=== PATIENT | male | born 1945 | race Caucasian/White ===

== ENCOUNTER → 2018-10-12 | Outpatient (CLI) | payer MEDICARE ==
[~2018-10-12] MED LIST: ASPI325 PO; ASPI81CH PO; ATOR40TA PO; CEPH500 PO; CLOP75 PO; EFFIENT10 MG PO; GABA600 PO; HYDACE5 PO; HYDCHL25 PO; METO50ER PO; METOPROLOL; Norco 10-325 T1 EACH PO; OMEP20ER PO; PARO25 PO; TRAM50 PO; TRIHYD253A PO
== END | disposition home or self-care (01) ==
LOC: LAB 18:49 → LAB SHORT 18:49
DX: L08.9 Local infection of the skin and subcutaneous tissue, unspecified (principal)
CPT/HCPCS: 87070; 87205

== ENCOUNTER → 2020-02-09 | Outpatient (CLI) | payer MEDICARE | END | disposition home or self-care (01) | LOC: PLD 07:57 → LAB SHORT 07:57 | DX: L57.0 Actinic keratosis (principal) | CPT/HCPCS: 88305 ==

== ENCOUNTER → 2020-10-25 | Outpatient (CLI) | payer MEDICARE | END | disposition home or self-care (01) | LOC: LAB SHORT 11:00 | DX: D48.5 Neoplasm of uncertain behavior of skin (principal) | CPT/HCPCS: 88305 ==

== ENCOUNTER 2021-02-13 08:40 | Day surgery (SDC) | payer MEDICARE ==
[~2021-02-13] VITALS: Ht 170.2 cm; Wt 72.0 kg
[~2021-02-13 08:40] MED LIST changes: +BUPRENO-NALOX1 EACH SL; +NITRO-DUR1 EAC1 TOP; +VITAMIN D5000 UNIT PO
--- NOTE | 2021-02-13 10:50 | NUR ---
PT MEDICATED WITH 10MG HYDRALAZINE FOR ELEVATED BP PER VERBAL ORDER FROM DR. GARCIA. WILL CONTINUE TO MONITOR. PTS RRAD SITE WITH NO BLEEDING, OOZING OR HEMATOMA NOTED.
[2021-02-13] MEDS ORDERED: Isosorbide Mono30 MG PO (11:21)
--- NOTE | 2021-02-13 14:30 | NUR ---
DISCHARGE PT AMBULATED TO RESTROOM AND DRESSES WITH WIFES ASSISTENCE. PT WITH A LOOSE BM. PT APPEARS TO BE CONFUSED BUT PER IS BASELINE FOR HIM. TR BAND WAS REMOVED, SITE CLEANED AND CLOTH DOT DRESSING APPLIED TO SITE. RRAD SITE WITHNO BLEEDING OOZING OR HEMATOMA NOTED. WHITE BOARD PLACED BACK ON R ARM AND ARM PLACED IN A SLING. IV DCD WITH CATH INTACT. PT GIVE HAND WRITTEN COPY OF NEW RX. PT AND BOTH STATE THEIR UNDERSTANDING OF SITE CARE AND DC INSTRUCTIONS AND BOTH DENY ANY QUESTIONS OR CONCERNS. VSS. PT TAKEN TO EXIT VIA WHEELCHAIR WHERE DAUGHTER WAS WAITING WITH CAR.
== END 2021-02-13 14:30 | disposition home or self-care (01) ==
LOC: MHTC 08:40
DX: R07.89 Other chest pain (principal); R94.39 Abnormal result of other cardiovascular function study; I12.9 Hypertensive chronic kidney disease with stage 1 through stage 4 chronic kidney disease, or unspecified chronic kidney disease; N18.9 Chronic kidney disease, unspecified; I25.10 Atherosclerotic heart disease of native coronary artery without angina pectoris; E78.5 Hyperlipidemia, unspecified; Z79.02 Long term (current) use of antithrombotics/antiplatelets; Z95.5 Presence of coronary angioplasty implant and graft; Z79.82 Long term (current) use of aspirin; Z79.899 Other long term (current) drug therapy; Z88.5 Allergy status to narcotic agent
CPT/HCPCS: 76937; 93458; 99152; C1769; C1894; J0360; J1644; J2250; J2370; J3010; J7030; J7050; Q9967

== ENCOUNTER → 2021-03-07 | Outpatient (CLI) | payer MEDICARE ==
[~2021-03-07] MED LIST changes: +Isosorbide Mono30 MG PO
== END ==
LOC: LAB SHORT 17:35
DX: R31.9 Hematuria, unspecified (principal)
CPT/HCPCS: 87086

== ENCOUNTER 2021-03-20 22:47 | Inpatient (IN) | payer MEDICARE ==
[~2021-03-20] VITALS: Ht 172.7 cm; Wt 71.8 kg
[~2021-03-20 22:47] MED LIST changes: +DYAZIDE 37.5-21 EACH PO; -TRIHYD253A PO
[2021-03-20 23:40] LABS: BASOPHILS ABSOLUTE AUTO 0.03 K/mm3 (0.00-0.23); BASOPHILS PERCENT AUTO 0 % (0-2); EOSINOPHILS ABSOLUTE AUTO 0.23 K/mm3 (0.00-0.68); EOSINOPHILS PERCENT AUTO 3 % (0-6); Hematocrit 29.3 % (37.0-53.0); Hemoglobin 9.6 g/dL (13.5-17.5); IMMATURE GRAN ABSOLUTE AUTO 0.16 K/mm3 (0.00-0.10); IMMATURE GRAN PERCENT AUTO 2 % (0-1); LYMPHOCYTES ABSOLUTE AUTO 1.71 K/mm3 (0.84-5.20); LYMPHOCYTES PERCENT AUTO 18 % (21-46); MONOCYTES ABSOLUTE AUTO 1.42 K/mm3 (0.16-1.47); MONOCYTES PERCENT AUTO 15 % (4-13); Mean Corpuscular HGB 33.3 pg (26.0-34.0); Mean Corpuscular HGB Conc 32.8 g/dL (31.5-36.5); Mean Corpuscular Volume 102 fL (80-100); Mean Platelet Volume 9.2 fL (9.1-12.4); NEUTROPHILS ABSOLUTE AUTO 5.74 K/mm3 (1.96-9.15); NEUTROPHILS PERCENT AUTO 62 % (41-73); Platelet Count 388 K/mm3 (150-400); RDW Coefficient Variation 13.3 % (11.7-14.2); RDW Standard Deviation 50.1 fL (35.1-46.3); Red Blood Cell Count 2.88 M/mm3 (4.30-5.90); White Blood Cell Count 9.29 K/mm3 (4.00-11.30)
[2021-03-20 23:54] LABS: Anion Gap 12 mmol/L (6-16); Blood Urea Nitrogen 53 mg/dL (8-24); Bun/Creatinine Ratio 23.9 (12.0-20.0); CO2, Blood 24 mmol/L (21-32); Calcium, Blood 12.3 mg/dL (8.5-10.1); Chloride, Blood 95 mmol/L (98-108); Creatinine, Blood 2.22 mg/dL (0.60-1.20); Glomerular Filtration Rate 29 (60-); Glucose, Blood 101 mg/dL (70-99); Potassium, Blood 4.9 mmol/L (3.5-5.5); Sodium, Blood 131 mmol/L (136-145); Troponin I <0.015 ng/mL (0.000-0.040)
[2021-03-21 00:53] LABS: Source, Urine Clean Catch
[2021-03-21 00:56] LABS: Bilirubin, Urine Neg (Neg); Blood, Urine 2+ (Neg); Glucose Qualitative, Urine Neg (Neg); Ketones, Urine Neg (Neg); Leukocyte Esterase, Urine Neg (Neg); Nitrite, Urine Neg (Neg); Protein, Urine Neg (Neg); Specific Gravity, Urine 1.015 (1.003-1.022); Urobilinogen, Urine NORM (Normal); pH, Urine 6.5 (5.0-8.0)
[2021-03-21 01:14] LABS: Appearance, Urine Clear (Clear); Color, Urine Yellow (P-Yellow)
[2021-03-21 01:15] LABS: Amorphous Light (0-Heavy); Bacteria Rare /hpf; Squamous Epithelial Cells Rare /hpf (Few); White Blood Cells, Urine Rare /hpf (0-5)
[2021-03-21 03:25] LABS: Influenza A, PCR NEGATIVE (NEGATIVE); Influenza B, PCR NEGATIVE (NEGATIVE); Resp Syncytial Virus, PCR NEGATIVE (NEGATIVE); SARS-Cov-2 (COVID-19) PCR, MMC NEGATIVE (NEGATIVE)
[2021-03-21 05:16] LABS: BASOPHILS ABSOLUTE AUTO 0.05 K/mm3 (0.00-0.23); BASOPHILS PERCENT AUTO 0 % (0-2); EOSINOPHILS ABSOLUTE AUTO 0.14 K/mm3 (0.00-0.68); EOSINOPHILS PERCENT AUTO 1 % (0-6); Hematocrit 29.3 % (37.0-53.0); Hemoglobin 9.7 g/dL (13.5-17.5); IMMATURE GRAN ABSOLUTE AUTO 0.12 K/mm3 (0.00-0.10); IMMATURE GRAN PERCENT AUTO 1 % (0-1); LYMPHOCYTES ABSOLUTE AUTO 1.69 K/mm3 (0.84-5.20); LYMPHOCYTES PERCENT AUTO 15 % (21-46); MONOCYTES ABSOLUTE AUTO 1.29 K/mm3 (0.16-1.47); MONOCYTES PERCENT AUTO 11 % (4-13); Mean Corpuscular HGB 33.3 pg (26.0-34.0); Mean Corpuscular HGB Conc 33.1 g/dL (31.5-36.5); Mean Corpuscular Volume 101 fL (80-100); Mean Platelet Volume 9.1 fL (9.1-12.4); NEUTROPHILS ABSOLUTE AUTO 8.23 K/mm3 (1.96-9.15); NEUTROPHILS PERCENT AUTO 72 % (41-73); Platelet Count 386 K/mm3 (150-400); RDW Coefficient Variation 13.4 % (11.7-14.2); RDW Standard Deviation 49.7 fL (35.1-46.3); Red Blood Cell Count 2.91 M/mm3 (4.30-5.90); White Blood Cell Count 11.52 K/mm3 (4.00-11.30)
[2021-03-21 05:32] LABS: Albumin, Blood 2.4 g/dL (3.4-5.0)
[2021-03-21 05:37] LABS: Alanine Aminotransfer (ALT/SGP 21 U/L (12-78); Albumin, Blood 2.3 g/dL (3.4-5.0); Albumin/Globulin Ratio 0.2 (0.8-1.8); Alk Phos 45 U/L (50-136); Anion Gap 8 mmol/L (6-16); Aspartate Aminotrans (AST/SGOT 31 U/L (12-37); Bilirubin, Total 0.4 mg/dL (0.1-1.0); Blood Urea Nitrogen 52 mg/dL (8-24); CO2, Blood 25 mmol/L (21-32); Calcium, Blood 12.4 mg/dL (8.5-10.1); Chloride, Blood 100 mmol/L (98-108); Creatinine, Blood 2.08 mg/dL (0.60-1.20); Globulin, Blood 9.3 g/dL (2.2-4.0); Glomerular Filtration Rate 31 (60-); Glucose, Blood 109 mg/dL (70-99); Potassium, Blood 5.4 mmol/L (3.5-5.5); Sodium, Blood 133 mmol/L (136-145); Total Protein, Blood 11.6 g/dL (6.4-8.2); Troponin I <0.015 ng/mL (0.000-0.040)
[2021-03-21] MEDS ORDERED: HYDR1TAB94 PO (09:41)
[2021-03-21] MEDS ORDERED: Prozac20 MG PO (09:41)
[2021-03-21] MEDS ORDERED: NEURONTIN300 MG PO (09:42)
[2021-03-21] MEDS ORDERED: METOPROLOL SUCC25 MG PO (09:43)
--- NOTE | 2021-03-21 10:35 | NUR ---
75 year old male admitted for Acute Renal Failure, Hypercalcemia, and Metastatic Disease. Pt's medical history and comorbidities include: Diastolic CHF, CAD, HTN, CKD3, Chronic Pain, and possible Metastatic bone cancer. Spoke with ED Pin Chaser Marycarmen and discussed case. Pt resting on gurney upon arrival. Pt is pleasantly confused and struggles with verbal response. Pt does report pain in his back but anable to verbalize intensity on pain scale 1-10. PAINAD score is 3/10. No dyspnea noted. Pt does appear mildly anxious. Called and spoke with Pt's spouse Albina. Provided update and engaged in therapeutic discussion regarding goals of care. Albina report seeing a significant decline with Pt over the last 3 months. Pt's confusion has increase and his level of function has decrease. Pt needs help with transfers with Albina reporting Pt does not ambulate. Pt needs assistance with bathing, dressing, eating, drinking and has a poor appetite. Pt often can use a urinal with assistance but does experience intermittent incontinence of urine. Albina reports Pt's care becomes more difficult due to his pain. Listened as Albina reports Pt would not want to pursue cancer treatment at this stage of his life. Albina also reports being a 3 year breast cancer survivor. She reports 2 daughters that are able to provide support as needed. She also reports her son is assisting with end of life care for his father in law and states father in law's prognosis is a week. Discussed hospice as an option and educated on hospice philosophy with V/U made by Albina. Albina reports leaning towards the option for hospice. Discussed hospice agencies to choose from with Albina reporting likely who ever is the available the soonest but will discuss further with family. Albina requests for Dr Singh to call for update on plan of care as well. Albina expresses appreciatin and reports no other concerns at this time. Spoke with Dr Singh, relayed spouse's request, and discussed case. PPS 40% KPS 40% ADLs 6/6 FAST 7C Pt may benefit from hospice services. Palliative Care will remain available.
--- NOTE | 2021-03-21 13:31 | NUR ---
Received referral from [facility] Sand Cutter (Alona Barnhart) on 03/21/2021. Patient is to discharge with orders for hospice and family elected [facility]. Gathered supporting documentation for referral (face sheet, labs, imaging, progress notes, palliative care note, and H&P) and sent to [facility] bundle helper (Larry Everett) for review of hospice appropriateness and ability to accept patient onto service post discharge. Will await further information from hospice bundle helper regarding the above. Neida Grimm Referral Liaison
--- NOTE | 2021-03-21 16:05 | NUR ---
Received notification from [facility] business analyst consultant (Larry Everett) that patient is hospice appropriate and able to be accepted onto service post discharge. Will attempt to meet with patient and/or family tomorrow to further discuss the above. Will continue to monitor and follow for discharge. Neida Grimm Referral Liaison
[2021-03-21] MEDS ORDERED: NITR.4SL SL (16:23)
--- NOTE | 2021-03-21 17:20 | NUR ---
SHIFT SUMMARY PT ADMITTED TO UNIT THIS SHIFT AT 1405 FROM ED. RECEIVED REPORT FROM EDIE TOVAR VIA PHONE. PT IS AAO TO SELF, FAMILY AND SITUATION, SOME CONFUSION NOTED, PT IS A VERY POOR HISTORIAN, FORGETFUL. REDIRECTABLE BY STAFF. PT's AT BEDSIDE T/O ADMISSION PROCESS. NO C/O PAIN OR ANY DISCOMFORT NOTED. PT DENIES CP, SOB, OR N&V. PT REMAINS ON 2LPM O2 VIA NC, SATTING 94%. PT IS INCONTINENT OF B&B, ATTENDS IN PLACE. PT REQUIRES 2P MAX ASSIST WITH BED MOBILITY AND TRANSFERS, PT SEEN BY THERAPY THIS SHIFT. PT CALM AND COMFORTABLE IN BED AT THIS TIME, BED AT LOWEST POSITION, W/ ALARM ON FOR SAFETY. CALL LIGHT WITHIN REACH.
--- NOTE | 2021-03-21 20:30 | NUR ---
ASSUMED CARE. AOX2, DOES NOT KNOW WHERE HE IS OR WHY HE IS HERE. DOES NOT KNOW DATE OR TIME. SLOW TO RESPOND, EASILY REDIRECTABLE. FATIQUED, DECONDITIONED, WEAKNESS, PALE SKIN. LS DIMINISHED T/O. CONTINUES TO PULL OFF O2, O2 2L NC SATS MID 90'S. NO COUGH OR CONGESTION. TELE-SINUS IN 80'S. NO CP OR DISCOMFORT. VS WNL. STATES CHRONIC BACK PAIN BUT DENIES NEED FOR PAIN MEDS. USED URINAL. IVF INFUSING, WAKES FOR SHORT PERIODS ONLY. CALL LIGHT IN REACH, BED ALARM IS ON.
--- NOTE | 2021-03-22 11:56 | NUR ---
Pt resting in bed upon arrival. Pt appears more alert from yesterday. Pt A&OX2/3. Pt reports pain in his back but unable to verbalize intensity. PAINAD score 3/10. Pt agreeable with plan to D/C home tomorrow with hospice. Spoke with Dr Singh and Primary RN Wilber. Discussed case and plan. Palliative Care will remain available.
--- NOTE | 2021-03-22 12:37 | NUR ---
Met with patient's (Albina Padgett) and daughter (Yadira Huitron) to further discuss hospice services and the election of [facility]. Patient's family is agreeable to the above. Discussed what hospice is (reserved for patients with a terminal diagnosis with life expectancy of 6 months or less). Discussed that some patients exceed the 6 months expectancy and stay on service and some patients stabilize and come off hospice. Patient's family verbalized understanding of the above. Discussed with patient's family that hospice service focuses on quality of life at the end of life and that rather than measuring the quantity of days, the quality of those days would be measured. Discussed with patient's family that with hospice service the goal would be to keep the patient out of the hospital and comfortable by managing symptoms at home. Patient's family verbalized understanding. Discussed the people, prescriptions, and equipment of hospice. People- discussed the team of people and their roles (RNs, chaplains, therapists, LCSWs, CNAs, and volunteers) that would be there to support not only the patient but also their family during this time. Explained to the patient's family that the team would be custom tailored to the patient and family's needs during this time. Patient's family verbalized understanding. Prescriptions- discussed that we [facility] a [facility] to provide medications related to the hospice diagnosis and for symptom management. All other medications that patient chose to stay on would be patient's and/or patient's family's responsibility to provide and pay for. Patient's family verbalized understanding. Discussed that upon discharge patient would be given three prescriptions, one for morphine 20mg/mL #30mL (0.25mL - 1mL PO/SL Q1H PRN SOB/pain), one for lorazepam 0.5mg #20 (1 - 2 PO Q4H PRN anxiety), and one for hyoscyamine 0.125mg SL tablets #30 (1 SL Q2H PRN secretions). Explained to the patient's family that as patient would not yet be admitted to hospice service at the time of discharge those prescriptions would be patient/patient's family's responsibility to fill and pay for. Patient's family verbalized understanding. Equipment- discussed with patient's family that we contract through [employer] to provide DME such as hospital beds, commodes, etc. to patient. Wrote order for DME (hospital bed, full rails, over bed table, pump & pad, oxygen & e-tank at 1-5 LPM, walker, and wheelchair) and sent to [facility] for delivery on Friday- 03/23/2021. Discussed with patient's family that [facility] [employer] [place] does not supply the sheets for the beds. Discussed that one of two options can be used- either a twin extra-long fitted sheet OR a cornelius sized flat sheet wrapped around the pump & pad. Patient's family verbalized understanding. Discussed with patient's family that once patient was admitted onto hospice services the goal would be for them to contact us ([facility]) over contacting 911 or presenting back to the hospital/ED. Patient's family verbalized understanding. Discussed the tentative discharge plans for Friday- 03/23/2021 at 1030 with preferred mode of transportation- medical transport via gurney. Explained to patient's family that I would arrange transportation for patient. Patient's family verbalized understanding. Offered a chance for patient's family to ask questions regarding the above of which there were none. Will continue to monitor and follow as appropriate for discharge. Neida rGimm Referral Liaison
--- NOTE | 2021-03-22 18:14 | NUR ---
PT IS A/OX3 TODAY TO SELF PLACE AND FAMILY. THE PT IS PLEASANT AND COOPERATIVE. THE PT AT TIMES HAS SOME CONFUSED SPEECH/ NONSENSICAL SPEECH. THE PT REPORTED PAIN WITH POSITION CHANGES AND WAS MEDICATED FOR PAIN X2 TODAY. THE PT HAD A LITTLE N/V AT LUNCH TIME AND DECLINED HIS LUNCH. THIS EVENING THE PT WAS MEDICATED FOR NAUSEA PRIOR TO DINNER, HOWEVER, CONTINUES TO HAVE A POOR APPETITE. PT APPEARS TO BE BREATHING EASILY ON O2 @ 2L/MIN AT REST. CALL LIGHT IN REACH. EXPECT DISCHARGE HOME WITH HOSPICE TOMORROW AT 10:30 AM
--- NOTE | 2021-03-23 06:15 | NUR ---
SHIFT SUMMARY PT A/O X2 AND SEEMS TO BECOME MORE CONFUSED AT NIGHT. PT OFTEN CALLED OUT DUE TO THINKING HE WAS AT HOME. PT EASILY REDIRECTABLE. PT INCONT/CONT THIS SHIFT AND AT TIMES IS ABLE TO USE THE URINAL IND. WILL DC HOME TODAY ON HOSPICE. BREATHING EASILY ON 2 LITERS O2. VSS. WILL REPORT TO DAY SHIFT RN.
[2021-03-23] MEDS ORDERED: MORP20L PO (10:03)
--- NOTE | 2021-03-23 10:34 | NUR ---
Patient is to discharge at 1030 with orders for hospice. Contacted [facility] ([place]) to arrange gurney transport to patient's residence. Pick-up at 1030 will be provided by the above. Faxed copy of face sheet, PCS form, and DNR status to [facility] Business office per protocol. Placed copies of the above in nurse server cashier for transportation engineer. Notified [employer] Assistant (Alona Barnhart), ACC (Jenelle Mosher), Charge RNs (Lilli Farah and Olga Salas), and bedside RN (Krysten Adams) of the above. All are agreeable to the above. Requested discharge orders from hospitalist (Dr. Singh). Provided hard copy prescriptions for morphine and lorazepam to patient's (Albina Padgett) on - 03/22/2021. Faxed copies of discharge order and med list to [facility] rod piler. No further interventions required. Neida Grimm Referral Liaison
--- NOTE | 2021-03-23 11:18 | NUR ---
DISCHARGE NOTE: PT DISCHARGED HOME TODAY VIA GURNEY WITH [facility]. IN ROOM AND DISCUSSED DISCHARGE INSTRUCTIONS AND MEDICATIONS WITH HER. PT BELONGINGS PACKED UP AND SENT WITH . PT MEDICATED FOR PAIN FOR THE RIDE HOME PER WIFES REQUEST. PT REPORTED PAIN WITH MOVEMENT ONLY. PT TOLERATED WELL.
--- NOTE | 2021-03-23 14:56 | NUR ---
Per Dr. Rivas discharge appropriate for today. 03/23/21. Patient's family does not oppose to discharge. Patient discharged to home with Hospice. Neida Cano's Hospice Patrol Guard coordinated hospice needs to include DME and transportation. [facility]'s transition of care with contact family point of contact to schedule hospital discharge follow up with PCP as needed. No barriers to discharge at this time.
[2021-03-23 15:07] LABS: A/G RATIO 0.5 (0.7-1.7); ALPHA-1-GLOBULIN 0.4 g/dL (0.0-0.4); ALPHA-2-GLOBULIN 1.2 g/dL (0.4-1.0); GLOBULIN, TOTAL 7.6 g/dL (2.2-3.9); M-SPIKE 4.4 g/dL (Not Observed); PROTEIN, TOTAL, SERUM 11.6 g/dL (6.0-8.5)
[2021-03-27 14:10] LABS: M-SPIKE, % Comment: % (Not Observed); PROTEIN,TOTAL,URINE 9.2 mg/dL (Not Estab.)
== END 2021-03-23 10:47 | disposition hospice, home (50) | DRG 682 ==
LOC: ER 22:47 → ERHOLD 22:48 → MEDS 03-21 14:00
PROVIDERS: Emergency Medicine; Student in an Organized Health Care Education/Training Program; ADMIT Internal Medicine
DX: N17.9 Acute kidney failure, unspecified (principal); G93.41 Metabolic encephalopathy; C90.00 Multiple myeloma not having achieved remission; I13.0 Hypertensive heart and chronic kidney disease with heart failure and stage 1 through stage 4 chronic kidney disease, or unspecified chronic kidney disease; I50.32 Chronic diastolic (congestive) heart failure; C79.51 Secondary malignant neoplasm of bone; E83.52 Hypercalcemia; Z66 Do not resuscitate; R31.29 Other microscopic hematuria; Z20.822 Contact with and (suspected) exposure to COVID-19; N18.30 Chronic kidney disease, stage 3 unspecified; F03.90 Unspecified dementia, unspecified severity, without behavioral disturbance, psychotic disturbance, mood disturbance, and anxiety; I25.119 Atherosclerotic heart disease of native coronary artery with unspecified angina pectoris; G89.29 Other chronic pain; F32.9 Major depressive disorder, single episode, unspecified; D53.9 Nutritional anemia, unspecified; Z88.5 Allergy status to narcotic agent; Z95.5 Presence of coronary angioplasty implant and graft; Z90.89 Acquired absence of other organs; Z79.899 Other long term (current) drug therapy; Z79.82 Long term (current) use of aspirin; Z79.02 Long term (current) use of antithrombotics/antiplatelets; Z28.21 Immunization not carried out because of patient refusal
CPT/HCPCS: 0241U; 36415; 51798; 70450; 71045; 74176; 80048; 80053; 81001; 82040; 82232; 82397; 82607; 82746; 83605; 83615; 83970; 84156; 84165; 84166; 84484; 85025; 87040; 93005; 93010; 94760; 96361; 96372; 96374; 96375; 97110; 97162; 97166; 97530; 99285-25; A9270; J0572; J0630; J1650; J2405; J3489; J7030; J7120